=== PATIENT | male | born 1990 | race Caucasian/White ===

== ENCOUNTER 2016-09-23 13:56 | Emergency (ER) | payer BC, OTHER ==
--- NOTE | 2016-09-23 14:29 | REP ---
Chest one-view HISTORY: Syncope Comparison: None The lungs are clear. The heart is normal in size. The pulmonary vasculature is normal in appearance. Impression: No acute disease. Signed by Yonas Partida MD 09/23/2016 02:20 P
[2016-09-23] MEDS: METOPROLOL 5 MG/5 ML VIAL IV SCH ×3 (14:43→15:21)
[2016-09-23 14:48] LABS: BASO % 0.3 % (0.0-1.0); EOS # 0.1 K/mm3 (0.0-0.50); EOS % 1.6 % (0.0-3.0); LARGE UNSTAINED CELL # 0.1 K/mm3 (0.0-0.4); LARGE UNSTAINED CELL % 1.6 % (0.0-4.0); LYMPH # 1.9 K/mm3 (1.5-6.5); LYMPH % 19.9 % (24.0-44.0); MEAN CORPUSCULAR HEMOGLOBIN 34.6 pg (27.0-33.0); MEAN CORPUSCULAR HGB CONC 35.4 g/dl (32.0-36.5); MEAN CORPUSCULAR VOLUME 97.8 fl (80.0-96.0); MONO # 0.5 K/mm3 (0.0-0.8); MONO % 6.2 % (0.0-5.0); NEUTROPHILS # 6.1 K/mm3 (1.8-7.7); NEUTROPHILS % 70.3 % (36.0-66.0); PLATELET COUNT, AUTOMATED 232 k/mm3 (150-450); WHITE BLOOD COUNT 8.6 K/mm3 (4.0-10.0)
[2016-09-23] MEDS ORDERED: METOPROLOL TART 50 MG TAB PO STA (14:48)
[2016-09-23 14:54] LABS: INR 0.98
[2016-09-23 15:21] VITALS: BP 116/86
[2016-09-23 15:22] LABS: ALBUMIN 3.7 GM/DL (3.2-5.2); ALBUMIN/GLOBULIN RATIO 1.06 (1.00-1.93); ALKALINE PHOSPHATASE 81 U/L (45-117); ALT/SGPT 76 U/L (12-78); ANION GAP 8 MEQ/L (8-16); AST/SGOT 20 U/L (15-37); BILIRUBIN,DIRECT 0.2 MG/DL (0.0-0.2); BILIRUBIN,TOTAL 1.3 MG/DL (0.2-1.0); BLOOD UREA NITROGEN 12 MG/DL (7-18); CALCIUM LEVEL 9.2 MG/DL (8.5-10.1); CARBON DIOXIDE LEVEL 24 MEQ/L (21-32); CHLORIDE LEVEL 106 MEQ/L (98-107); CREATININE FOR GFR 0.77 MG/DL (0.70-1.30); FREE T4 1.41 NG/DL (0.76-1.46); GLOMERULAR FILTRATION RATE > 60.0 (>60); GLUCOSE, FASTING 85 MG/DL (70-105); SODIUM LEVEL 138 MEQ/L (136-145); TOTAL PROTEIN 7.2 GM/DL (6.4-8.2)
[2016-09-23 16:32] LABS: METHADONE URINE NEGATIVE (NEGATIVE)
[2016-09-23] MEDS ORDERED: FLECAINIDE 50MG TABLET PO ONE (17:45)
--- NOTE | 2016-09-23 18:29 | REP ---
Chest x-ray: Two views. History: Atrial fibrillation. Comparison: Chest x-ray September 23, 2016. Findings: The lungs are well inflated and clear. EKG monitoring electrodes overlie the chest. Pulmonary vasculature is not increased. Pleural angles are sharp. Heart size is normal. No significant bony abnormality is seen. Impression: No active disease. Signed by Michael Kaplan MD 09/23/2016 07:00 P
--- NOTE | 2016-09-23 19:40 | ECGEPIP ---
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
[2016-09-23 22:15] VITALS: BP 97/62
--- NOTE | 2016-09-24 08:53 | ECGEPIP ---
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
--- NOTE | 2016-09-24 08:59 | ECGEPIP ---
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
[2016-09-24] MEDS ORDERED: ASPI1TAB PO (22:45)
== END 2016-09-23 22:40 | disposition home or self-care (01) ==
LOC: M ED 14:44
DX: I48.0 Paroxysmal atrial fibrillation (principal); R06.02 Shortness of breath
CPT/HCPCS: 71010; 71020; 80048; 80076; 80306; 84439; 84443; 85025; 85610; 93005; 93041; 94760; 96374; 96376; 99285; G0480

== ENCOUNTER 2016-09-24 22:38 | Emergency (ER) | payer BC, SELFPAY ==
[~2016-09-24] VITALS: Ht 180.3 cm; Wt 100.0 kg
[2016-09-24] MEDS ORDERED: ASPI1TAB PO (22:45)
[2016-09-24 23:27] LABS: BASO % 0.3 % (0.0-1.0); EOS # 0.4 K/mm3 (0.0-0.50); EOS % 3.4 % (0.0-3.0); LARGE UNSTAINED CELL # 0.3 K/mm3 (0.0-0.4); LARGE UNSTAINED CELL % 2.5 % (0.0-4.0); LYMPH # 2.5 K/mm3 (1.5-6.5); LYMPH % 18.7 % (24.0-44.0); MEAN CORPUSCULAR HEMOGLOBIN 34.1 pg (27.0-33.0); MEAN CORPUSCULAR VOLUME 97.6 fl (80.0-96.0); MONO # 0.7 K/mm3 (0.0-0.8); MONO % 6.3 % (0.0-5.0); NEUTROPHILS # 7.9 K/mm3 (1.8-7.7); NEUTROPHILS % 68.7 % (36.0-66.0); PLATELET COUNT, AUTOMATED 232 k/mm3 (150-450); RED CELL DISTRIBUTION WIDTH 11.9 % (11.5-14.5); WHITE BLOOD COUNT 11.5 K/mm3 (4.0-10.0)
[2016-09-24] MEDS ORDERED: NS 1,000 ML IV ONE (23:30)
[2016-09-24 23:41] LABS: ANION GAP 7 MEQ/L (8-16); BLOOD UREA NITROGEN 16 MG/DL (7-18); CALCIUM LEVEL 9.1 MG/DL (8.5-10.1); CARBON DIOXIDE LEVEL 25 MEQ/L (21-32); CHLORIDE LEVEL 108 MEQ/L (98-107); CREATININE FOR GFR 0.91 MG/DL (0.70-1.30); GLOMERULAR FILTRATION RATE > 60.0 (>60); GLUCOSE, FASTING 94 MG/DL (70-105); POTASSIUM SERUM 3.9 MEQ/L (3.5-5.1); SODIUM LEVEL 140 MEQ/L (136-145)
[2016-09-25 01:43] VITALS: BP 118/59
--- NOTE | 2016-09-27 08:38 | ECGEPIP ---
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
== END 2016-09-25 01:44 | disposition home or self-care (01) ==
LOC: EDBD 22:38 → M ED 22:58
DX: R00.2 Palpitations (principal); Z86.79 Personal history of other diseases of the circulatory system; Z79.82 Long term (current) use of aspirin

== ENCOUNTER → 2019-11-02 | Outpatient (CLI) | payer BC, OTHER ==
[~2019-11-02] MED LIST: ASPI81TA26 PO
--- NOTE | 2020-01-13 07:23 | REP ---
KUB ABDOMEN AND PELVIS: HISTORY: Epigastric pain for 2 days. FINDINGS: 2 AP views of the abdomen and pelvis are performed. The bowel gas pattern is normal. There is no evidence of bowel obstruction. There are no dilated small bowel loops. There are no abnormal calcifications. IMPRESSION: Unremarkable KUB abdomen. Please note the study is performed 11/02/19 and due to technological and computer failures, is not available for dictation until 11/21/19. MTDD
== END ==
LOC: M WUC 10:30
PROVIDERS: ATTEND Nurse Practitioner Family
DX: K59.00 Constipation, unspecified (principal); R10.13 Epigastric pain

== ENCOUNTER 2019-11-04 05:41 | Emergency (ER) | payer BC, OTHER ==
[2019-11-04] MEDS ORDERED: GI COCKTAIL 50ML BTL(HYOSCYAMINE/MAALOX/LIDOCAINE VISCOUS)(1:3:1) As Ordered ONE (07:48)
[2019-11-04] MEDS ORDERED: GI COCKTAIL 50ML BTL(HYOSCYAMINE/MAALOX/LIDOCAINE VISCOUS)(1:3:1) ONE (07:48)
[2019-11-04] MEDS ORDERED: ISOVUE-370 76% 100ML VIAL As Ordered ONE (11:03)
[2019-12-01 14:10] LABS: BLOOD UREA NITROGEN 8 MG/DL (7-18); CALCIUM LEVEL 9.3 MG/DL (8.5-10.1); CARBON DIOXIDE LEVEL 30 MEQ/L (21-32); CHLORIDE LEVEL 105 MEQ/L (98-107); CREATININE FOR GFR 0.92 MG/DL (0.70-1.30); GLOMERULAR FILTRATION RATE > 60.0 (>60); GLUCOSE, FASTING 101 MG/DL (70-100); POTASSIUM SERUM 4.8 MEQ/L (3.5-5.1); SODIUM LEVEL 138 MEQ/L (136-145); TROPONIN I < 0.02 NG/ML (< 0.10)
--- NOTE | 2019-12-06 07:38 | REP ---
CHEST X-RAY: 2-VIEWS HISTORY: Epigastric pain. COMPARISON: 09/23/16 FINDINGS: 2-views of the chest are performed. There is linear discoid atelectasis in the left base. No acute infiltrate is seen. The heart is normal in size. The mediastinal silhouette is unremarkable and unchanged. The visualized osseous structures are unremarkable. IMPRESSION: Linear discoid atelectasis left base with no acute infiltrate. MTDD
--- NOTE | 2019-12-06 07:40 | REP ---
CT PULMONARY ANGIOGRAM WITH IV CONTRAST: HISTORY: Central chest pain, rule out pulmonary embolus. Odynophagia. CT CONTRAST DOSE: 75 ml of intravenous Isovue 370. COMPARISON: None. FINDINGS: There is good opacification of the pulmonary arterial tree. No vessel cutoff or filling defect is seen to suggest pulmonary embolus. No hilar or mediastinal mass or adenopathy is seen. No pleural or pericardial effusion is observed. No bony destructive lesion is appreciated. There are borderline lymph nodes in the celiac axis in the upper abdomen. The largest of these measures 1.9 cm in greatest diameter. These are of uncertain significance. There is a tiny accessory splenule. The visualized upper abdominal structures are otherwise unremarkable. There is mild platelike atelectasis in the lingular segment of the left upper lobe. Lung recinos are otherwise clear. IMPRESSION: No CT evidence of pulmonary embolus. Linear platelike atelectasis in the lingula. Borderline celiac axis lymph nodes, the largest 1.9 cm. Consider follow up CT study in 4-6 months. Otherwise no active disease. MTDD
[2019-12-08 09:29] LABS: BASO % 0.3 % (0.0-1.0); EOS # 0.2 10^3/uL (0.0-0.5); EOS % 2.6 % (0.0-3.0); HEMATOCRIT 45.7 % (42.0-52.0); HEMOGLOBIN 15.3 g/dl (13.5-17.5); LYMPH # 2.3 10^3/uL (1.5-5.0); LYMPH % 31.8 % (24.0-44.0); MEAN CORPUSCULAR HEMOGLOBIN 31.6 pg (27.0-33.0); MEAN CORPUSCULAR HGB CONC 33.5 g/dl (32.0-36.5); MEAN CORPUSCULAR VOLUME 94.4 fl (80.0-96.0); MONO # 0.5 10^3/uL (0.0-0.8); MONO % 7.2 % (0.0-5.0); NEUTROPHILS # 4.2 10^3/uL (1.5-8.5); NEUTROPHILS % 57.8 % (36.0-66.0); PLATELET COUNT, AUTOMATED 257 10^3/uL (150-450); RED BLOOD COUNT 4.84 10^6/uL (4.30-6.10); WHITE BLOOD COUNT 7.3 10^3/uL (4.0-10.0)
--- NOTE | 2019-12-25 16:17 | ECGEPIP ---
SINUS RHYTHM WITH SINUS ARRHYTHMIA NORMAL ECG INTERPRETATION BASED ON A DEFAULT AGE OF [address] & T-WAVE CHANGES SEE SCANNED DOWNTIME REPORT MTDD
== END 2019-11-04 13:15 | disposition home or self-care (01) ==
LOC: M ED 05:41
DX: R13.10 Dysphagia, unspecified (principal); R59.0 Localized enlarged lymph nodes; Z86.79 Personal history of other diseases of the circulatory system; Z79.899 Other long term (current) drug therapy; F17.200 Nicotine dependence, unspecified, uncomplicated
CPT/HCPCS: 71046; 71275; 80048; 84484; 85025; 85379; 93005; 96360; 96361; 99284; Q9967

== ENCOUNTER → 2019-11-25 | Outpatient (CLI) | payer BC ==
[~2019-11-25] MED LIST changes: +E-Z-GAS II EFFERVESCENT PACKET (SODIUM BICARB./CITRIC ACID/SIMETHICONE) ONE; +E-Z-HD 98% w/w 340GM SUSP BTL ONE; +E-Z-PAQUE 96% w/w SUSP 176GM BTL ONE
--- NOTE | 2019-12-31 10:42 | REP ---
UPPER GI WITH AIR CONTRAST: The procedure was performed under the direct supervision of Dr. Kaplan. The images were reviewed with Dr. Kaplan. FINDINGS: The billing representative film shows no organomegaly or pathological masses. The intestinal gas pattern is nonspecific. Liquid barium and gas producing granules were given in the erect position as well as liquid barium in the prone oblique position in order to perform a double contrast upper GI examination. The oral and pharyngeal stages of deglutition are unremarkable. Esophageal transport is prompt and efficient. In the mid-esophagus, there is prominent muscularis mucosa which likely represents esophagitis. There is no delaney ulcer identified. There is no stricture or mucosal ring. There is a small sliding type hiatal hernia. Gastroesophageal reflux is not demonstrated on this examination. The stomach mar are normally outlined. The rugal folds are smooth and regular. There is no gastritis, neoplasm or ulcer disease. The duodenal mar are normally outlined. The mucosal folds are smooth and regular. There is no duodenitis, pancreatitis, peptic ulcer disease or neoplasm. The visualized portion of the proximal small bowel appears normal in course and caliber. IMPRESSION: 1. There is prominent muscularis mucosa in the mid-esophagus which likely represents esophagitis. There is no delaney ulcer identified. 2. There is a small sliding type hiatal hernia. 1 minute of fluoroscopy time was utilized for this procedure. [facility]
== END ==
LOC: M RAD 08:25
PROVIDERS: ATTEND Specialist
DX: K20.9 Esophagitis, unspecified (principal); R13.19 Other dysphagia; K44.9 Diaphragmatic hernia without obstruction or gangrene

== ENCOUNTER → 2022-03-10 | Outpatient (REF) | payer OTHER ==
[~2022-03-10] MED LIST changes: -E-Z-GAS II EFFERVESCENT PACKET (SODIUM BICARB./CITRIC ACID/SIMETHICONE) ONE; -E-Z-HD 98% w/w 340GM SUSP BTL ONE; -E-Z-PAQUE 96% w/w SUSP 176GM BTL ONE
[2022-03-10 20:10] LABS: GC DNA AMPLIFICATION NEGATIVE (NEGATIVE)
== END ==
LOC: M SFHCCLAY 15:10
PROVIDERS: ATTEND Nurse Practitioner Family
DX: Z20.2 Contact with and (suspected) exposure to infections with a predominantly sexual mode of transmission (principal)

== ENCOUNTER → 2025-03-11 | Outpatient (REF) | payer BC ==
[2025-03-11 18:34] LABS: ALT/SGPT 124 U/L (7.0-40); AST/SGOT 43 U/L (<34); CALCIUM LEVEL 9.4 MG/DL (8.5-10.1); CARBON DIOXIDE LEVEL 30 MMOL/L (20-31); CHLORIDE LEVEL 103 MMOL/L (98-107); CHOLESTEROL LEVEL 140 MG/DL (<200); CHOLESTEROL RISK RATIO 2.78 (<5); CREATININE FOR GFR 0.85 MG/DL (0.70-1.30); GLOMERULAR FILTRATION RATE > 90.0 (>60); LDL CHOLESTEROL 74.4 MG/DL (<100); NON-HDL-C 89.8 MG/DL; POTASSIUM SERUM 4.3 MMOL/L (3.5-5.1); SODIUM LEVEL 139 MMOL/L (136-145); TRIGLYCERIDES LEVEL 77 MG/DL (<150)
[2025-03-11 18:44] LABS: ESTIMATED AVERAGE GLUCOSE 105.0 MG/DL (60-110)
== END ==
LOC: M SFHCCLAY 09:54
PROVIDERS: ATTEND Nurse Practitioner Family
DX: Z00.00 Encounter for general adult medical examination without abnormal findings (principal); E66.812 Obesity, class 2